=== PATIENT | male | born 1955 | race Caucasian/White ===

== ENCOUNTER → 2018-02-16 | Outpatient (CLI) | payer OTHER ==
--- NOTE | 2018-02-16 14:24 | US ---
EXAMINATION TYPE: US abdomen complete DATE OF EXAM: 02/16/2018 COMPARISON: NONE CLINICAL HISTORY: R94.5 Abnormal Liver Functions. Abn labs, no pain, no hx of surgeries EXAM MEASUREMENTS: Liver Length: 18.7 cm Gallbladder Wall: 0.3 cm CHD: 0.4 cm Spleen: 12.8 cm Right Kidney: 11.0 x 5.5 x 6.5 cm Left Kidney: 11.4 x 5.1 x 6.2 cm Pancreas: Prominent heterogenous pancreatic body is seen Tail not well visualized due to overlying b owel gas. Liver: Slightly enlarged with very mildly coarsened echotexture and minimally diminished visualizati on of the portal triads and right hemidiaphragm. Gallbladder: wnl Evidence for sonographic Priest's sign: neg CBD: Obscured by overlying bowel gas Spleen: upper limits of normal in size Right Kidney: wnl Left Kidney: wnl Upper IVC: wnl Abd Aorta: Mid portion not visualized due to overlying bowel gas. The intrahepatic portion of the IVC and proximal abdominal aorta are within normal limits. There is no evidence of cholelithiasis. Common bile duct is unremarkable. The spleen is unremarkable. Kidney s are symmetric and free of hydronephrosis. No renal lesions are seen. IMPRESSION: 1. Prominent heterogenous pancreatic body for which further evaluation with three-phase enhanced CT i s recommended (pancreatic mass protocol) to ensure no underlying pancreatic mass. No discrete ductal dilatation is seen although the pancreatic tail is not visualized. 2. Minimal coarsened echotexture can be seen in very mild hepatic steatosis.
== END ==
LOC: RADUSWWP 12:19
PROVIDERS: ATTEND Family Medicine
DX: R94.5 Abnormal results of liver function studies (principal)
CPT/HCPCS: 76700

== ENCOUNTER → 2018-02-23 | Outpatient (CLI) | payer OTHER ==
--- NOTE | 2018-02-23 09:06 | CT ---
EXAMINATION TYPE: CT abdomen w con DATE OF EXAM: 02/23/2018 COMPARISON: Ultrasound 02/16/2018 HISTORY: Pancreatic mass CT DLP: 759 mGycm Automated exposure control for dose reduction was used. TECHNIQUE: Helical acquisition of images was performed from the lung bases through the top of iliac crest to include entire abdomen. CONTRAST: Performed without Oral Contrast and with IV Contrast, patient injected with 100 ml mL of Isovue 370. FINDINGS: LUNG BASES: No significant abnormality is appreciated. LIVER/GB: Liver slightly reduced in attenuation correlate for hepatic cirrhosis PANCREAS: No significant abnormality is seen. SPLEEN: No significant abnormality is seen. Accessory spleen noted. ADRENALS: No significant abnormality is seen. KIDNEYS: Tiny hypodensity involving the lateral margin right kidney image 49 to small to characterize BOWEL: No significant abnormality is seen. Small hiatal hernia noted. LYMPH NODES: No significant abnormality is seen. OSSEOUS STRUCTURES: No significant abnormality is seen. OTHER: Aorta of normal caliber. IMPRESSION: 1. No diagnostic evidence of pancreatic mass. 2. Correlate for hepatic steatosis. 3. Small hiatal hernia.
== END | disposition home or self-care (01) ==
LOC: RADCTMAIN 06:58
PROVIDERS: ATTEND Family Medicine
DX: K86.9 Disease of pancreas, unspecified (principal)
CPT/HCPCS: 74160; Q9967